=== PATIENT | female | born 1970 | race African-American/Black ===

== ENCOUNTER 2017-06-17 09:28 | Emergency (ER) | payer BC ==
[~2017-06-17] VITALS: Ht 157.5 cm; Wt 104.3 kg
[2017-06-17 09:52] VITALS: BP 132/86
[2017-06-17] MEDS ORDERED: KETOROLAC TROMETH 60MG/2ML VIAL IM ONE (10:15)
== END 2017-06-17 11:06 | disposition home or self-care (01) ==
LOC: ER 09:28
DX: S39.012A Strain of muscle, fascia and tendon of lower back, initial encounter (principal); G89.29 Other chronic pain; I10 Essential (primary) hypertension; X58.XXXA Exposure to other specified factors, initial encounter; Y93.89 Activity, other specified; Y99.8 Other external cause status; Y92.89 Other specified places as the place of occurrence of the external cause
CPT/HCPCS: 72100; 96372; 99284; J1885

== ENCOUNTER 2018-06-18 10:30 | Emergency (ER) | payer BC ==
[~2018-06-18] VITALS: Ht 157.5 cm; Wt 87.5 kg
[2018-06-18 10:38] VITALS: BP 159/94
[2018-06-18] MEDS ORDERED: ALBUTEROL SULF 2.5 MG/0.5ML(0.5%) NEB SOLN NEB ONE (11:45)
[2018-06-18] MEDS ORDERED: IPRATROPIUM BROM 0.5 MG/2.5ML INH SOL NEB ONE (11:45)
[2018-06-18] MEDS ORDERED: methylPREDNISolone SOD SUCC 125 MG/2 ML VL IM ONE (11:45)
== END 2018-06-18 13:00 | disposition home or self-care (01) ==
LOC: ER 10:30
DX: J45.909 Unspecified asthma, uncomplicated (principal); I10 Essential (primary) hypertension
CPT/HCPCS: 71046; 94640; 96372; 99283; J2930; J7611; J7644

== ENCOUNTER 2018-06-21 11:04 | Inpatient (IN) | payer BC ==
[~2018-06-21] VITALS: Ht 157.5 cm; Wt 138.6 kg
[2018-06-21] MEDS ORDERED: ASPirin 81 mg TAB PO ONE (11:30)
[2018-06-21 12:22] LABS: Chloride 106 mmol/L (98-107); Potassium 3.4 mmol/L (3.5-5.1); Sodium 140 mmol/L (136-145)
[2018-06-21 12:24] LABS: Albumin 3.7 g/dL (3.4-5.0); Anion Gap 8 (5-15); Blood Urea Nitrogen 17 mg/dL (7-18); Calcium 9.4 mg/dL (8.5-10.1); Carbon Dioxide 26 mmol/L (21-32); Glucose 92 mg/dL (74-106)
[2018-06-21 12:30] LABS: Alanine Aminotransferase 78 U/L (13-56); Alkaline Phosphatase 138 U/L (45-117); Aspartate Aminotransferase 45 U/L (15-37); BUN/Creatinine Ratio 16.3; Bilirubin, Total 0.3 mg/dL (0.2-1.0); GFR African American 73 mL/min; GFR Non-African American 61 mL/min; Total Protein 8.8 g/dL (6.4-8.2)
[2018-06-21 12:37] LABS: Basophils # (auto) 0.2 uL; Basophils % (auto) 0.8 % (0.0-2.0); Eosinophils # (auto) 0.2 uL; Monocytes # (auto) 1.1 uL; Neutrophils # (auto) 11.8 uL; White Blood Cell 20.7 10^3/uL (4.4-10.8)
[2018-06-21 12:40] LABS: Hematocrit 39.5 % (36.0-46.0); Hemoglobin 11.7 g/dL (12.2-16.2); Lymphocytes # (auto) 7.4 uL; Lymphocytes % (auto) 35.6 % (10.0-50.0); Mean Corpuscular Hemoglobin 17.9 pg (28.0-32.0); Mean Corpuscular Hgb Conc. 29.7 g/dL (32.0-36.0); Mean Corpuscular Volume 60.4 fL (80.0-100.0); Monocytes % (auto) 5.4 % (0.0-12.0); Neutrophils % (auto) 57.2 % (37.0-80.0); Nucleated Red Blood Cells % 0.2 %; Platelet Count (auto) 432 10^3/uL (140-450); Red Blood Cells 6.54 10^6/uL (4.0-5.20)
[2018-06-21] MEDS ORDERED: POTASSIUM CHLORIDE 8 MEQ TAB PO ONE (12:45)
[2018-06-21] MEDS ORDERED: PANTOPRAZOLE 40 MG TAB PO ONE ×2 (12:45→13:00)
[2018-06-21] MEDS ORDERED: NITROGLYCERIN 0.4 MG SL TAB SL PRN (12:45)
[2018-06-21 12:51] LABS: Red Cell Distribution Width 20.6 % (11.8-14.3)
[2018-06-21] MEDS ORDERED: TOPIRAMATE 25 MG TAB PO ONE (13:00)
[2018-06-21] MEDS ORDERED: ASPirin-EC 81 mg tab PO ONE (13:00)
[2018-06-21] MEDS ORDERED: BUDESONIDE (INHALATION) 0.5 MG/2 ML NEB NEB ONE (13:00)
[2018-06-21] MEDS ORDERED: LEVOFLOXACIN 500MG 100 ML IV ONE (13:00)
[2018-06-21 14:13] VITALS: BP 115/73
--- NOTE | 2018-06-21 17:10 | NUR ---
Telemetry admit from ER Patient admitted to Telemetry unit. Patient oriented to primary RN, unit, room, bed, and unit policies regarding patient care and visiting hours. Patient now on continuous telemetry monitoring, tele box # and telemetry reading on arrival to unit is Sinus Tach in the low 100's. Patient weighed by bedscale and encouraged to call if they need something. All questions and concerns addressed, patient verbalized understanding.Bed in lowest, locked position with side rails up x2 and call light within reach. Will continue to monitor patient Q1hr and PRN.
[2018-06-21 17:30] VITALS: BP 114/75
[2018-06-21] MEDS: IPRATROPIUM BROM 0.5 MG/2.5ML INH SOL NEB SCH (18:47)
[2018-06-21] MEDS: ALBUTEROL SULF 2.5 MG/0.5ML(0.5%) NEB SOLN NEB SCH (18:47)
[2018-06-21] MEDS: BUDESONIDE (INHALATION) 0.5 MG/2 ML NEB NEB SCH (18:48)
--- NOTE | 2018-06-21 18:55 | NUR ---
DNR Per patient she has an advanced directive and living will. Will try to have sister bring in tomorrow. Patient also states she wishes DNR status.
--- NOTE | 2018-06-21 19:11 | NUR ---
HOME MEDS Per patient, sister will bring list of medications tomorrow.
--- NOTE | 2018-06-21 19:50 | NUR ---
CLOSING NOTE Endorsed care of patient to NOC Pilar OHARA.
[2018-06-21 21:57] VITALS: BP 103/70
[2018-06-21] MEDS: AMITRIPTYLINE HCL 25 MG TAB PO SCH (22:12)
[2018-06-21] MEDS: ATORVASTATIN 20 MG TAB PO SCH (22:12)
[2018-06-22 05:00] VITALS: BP 105/72
[2018-06-22 06:14] LABS: Potassium 4.2 mmol/L (3.5-5.1)
[2018-06-22 06:25] LABS: Albumin 3.2 g/dL (3.4-5.0); BUN/Creatinine Ratio 21.6; Bilirubin, Total 0.4 mg/dL (0.2-1.0); Calcium 8.5 mg/dL (8.5-10.1); Total Protein 7.4 g/dL (6.4-8.2)
[2018-06-22 07:46] LABS: Basophils # (auto) 0.1 uL; Basophils % (auto) 0.8 % (0.0-2.0); Eosinophils # (auto) 0.4 uL; Eosinophils % (auto) 2.4 % (0.0-7.0); Hematocrit 35.9 % (36.0-46.0); Hemoglobin 10.6 g/dL (12.2-16.2); Lymphocytes # (auto) 5.3 uL; Lymphocytes % (auto) 33.5 % (10.0-50.0); Mean Corpuscular Hemoglobin 17.8 pg (28.0-32.0); Mean Corpuscular Hgb Conc. 29.5 g/dL (32.0-36.0); Mean Corpuscular Volume 60.3 fL (80.0-100.0); Monocytes # (auto) 0.6 uL; Monocytes % (auto) 4.1 % (0.0-12.0); Neutrophils # (auto) 9.3 uL; Neutrophils % (auto) 59.2 % (37.0-80.0); Nucleated Red Blood Cells % 0.1 %; Platelet Count (auto) 359 10^3/uL (140-450); Red Blood Cells 5.96 10^6/uL (4.0-5.20); White Blood Cell 15.7 10^3/uL (4.4-10.8)
[2018-06-22 08:02] LABS: Red Cell Distribution Width 20.3 % (11.8-14.3)
--- NOTE | 2018-06-22 08:15 | NUR ---
Opening Shift Note Assumed care of patient, awake and alert and oriented x4. No S/S of distress/SOB or pain. Instructed on POC and to call for assist PRN, will continue to monitor for changes.
--- NOTE | 2018-06-22 08:22 | NUR ---
Urine collected and sent to lab.
[2018-06-22] MEDS: IPRATROPIUM BROM 0.5 MG/2.5ML INH SOL NEB SCH ×3 (08:30→19:25)
[2018-06-22] MEDS: ALBUTEROL SULF 2.5 MG/0.5ML(0.5%) NEB SOLN NEB SCH ×3 (08:30→19:25)
[2018-06-22 08:47] LABS: Urine Bacteria FEW /hpf (None Seen); Urine Blood Negative /uL (Negative); Urine Specific Gravity 1.021 (1.001-1.035); Urine WBC 2 /hpf (0 - 5)
[2018-06-22] MEDS: PANTOPRAZOLE 40 MG TAB PO SCH (09:23)
[2018-06-22] MEDS: LEVOFLOXACIN 500MG 100 ML IV SCH (09:24)
[2018-06-22] MEDS: TOPIRAMATE 25 MG TAB PO SCH (09:24)
[2018-06-22] MEDS: ASPirin-EC 81 mg tab PO SCH (09:24)
--- NOTE | 2018-06-22 12:06 | NUR ---
Dr Bear at bedside.
[2018-06-22] MEDS: BUDESONIDE (INHALATION) 0.5 MG/2 ML NEB NEB SCH ×2 (12:36→19:25)
[2018-06-22 13:00] VITALS: BP 112/76
--- NOTE | 2018-06-22 13:53 | NUR ---
Dr Bear pagerajiv in order to make aware of S Tach episode, will continue to monitor.
--- NOTE | 2018-06-22 13:58 | NUR ---
Dr Bear at bedside and made aware of STach 150s episode when ambulating to bathroom, per Dr Bear to inform Dr Anderson.
--- NOTE | 2018-06-22 14:18 | NUR ---
Dr Anderson made aware of S Tach episode of 150s when ambulating to bathroom, new order received for V/Q scan will continue to monitor.
[2018-06-22 17:07] VITALS: BP 114/78
--- NOTE | 2018-06-22 17:34 | NUR ---
Patient was c/o 9/10 left lower sided chest pain, sharp. No diaphoresis noted. Patient sitting up in bed eating, no distress noted. Patient refusing Nitro and Morphine and wants Tramadol to be given instead. EKG performed and showing STach will inform MD.
--- NOTE | 2018-06-22 17:50 | NUR ---
Hospitalist Connie at nursing station made aware of CP episode and EKG strip given. Made aware Dr Qureshi was at station and EHG strip shown in meantime that found hospitalist. No new orders, will continue to monitor.
[2018-06-22] MEDS: traMADol HCL 50 MG TAB PO PRN (17:52)
--- NOTE | 2018-06-22 19:01 | NUR ---
Patient care and report handed off to Pilar OHARA.
[2018-06-22] MEDS: AMITRIPTYLINE HCL 25 MG TAB PO SCH (20:42)
[2018-06-22] MEDS: ONDANSETRON HCL 4 MG/2 ML VIAL IV PRN (20:42)
[2018-06-22] MEDS: MORPHINE SULF INJ 2 MG/ML SYRINGE 1ML IV PRN (20:42)
[2018-06-22] MEDS: ATORVASTATIN 20 MG TAB PO SCH (20:42)
[2018-06-22 21:38] VITALS: BP 128/85
[2018-06-23 05:05] VITALS: BP 112/84
[2018-06-23] MEDS: IPRATROPIUM BROM 0.5 MG/2.5ML INH SOL NEB SCH ×3 (05:58→17:50)
[2018-06-23] MEDS: ALBUTEROL SULF 2.5 MG/0.5ML(0.5%) NEB SOLN NEB SCH ×3 (05:58→17:50)
[2018-06-23 06:24] LABS: Hematocrit 33.9 % (36.0-46.0); Hemoglobin 9.9 g/dL (12.2-16.2); Mean Corpuscular Hemoglobin 17.5 pg (28.0-32.0); Mean Corpuscular Hgb Conc. 29.2 g/dL (32.0-36.0); Mean Corpuscular Volume 59.9 fL (80.0-100.0); Platelet Count (auto) 331 10^3/uL (140-450); Red Blood Cells 5.65 10^6/uL (4.0-5.20); White Blood Cell 15.2 10^3/uL (4.4-10.8)
[2018-06-23 06:25] LABS: Red Cell Distribution Width 20.2 % (11.8-14.3)
[2018-06-23 06:26] LABS: Basophils % (manual) 0 (0.0-2.0); Blast Cells 0; Metamyelocytes % 0; Myelocytes % 0; Promyelocytes % 0; Reactive Lymphocytes 0
[2018-06-23 08:00] VITALS: BP 105/77
[2018-06-23] MEDS: traMADol HCL 50 MG TAB PO PRN ×2 (08:02→18:15)
[2018-06-23 08:08] LABS: Band Neutrophils % (manual) 3; Eosinophils % (manual) 1 (0-7); Lymphocytes % (manual) 31 (10.0-50.0); Monocytes % (manual) 8 (0-12)
--- NOTE | 2018-06-23 08:12 | NUR ---
OPENING NOTE Received report on patient. Patient is awake in bed, eating breakfast. A/O x4. No signs/symptoms of pain or distress at this time. Discussed POC with patient. Patient verbalizes understanding. Call light within reach.
[2018-06-23 08:49] VITALS: BP 105/77
[2018-06-23] MEDS: LEVOFLOXACIN 500MG 100 ML IV SCH (10:15)
[2018-06-23] MEDS: ASPirin-EC 81 mg tab PO SCH (10:15)
[2018-06-23] MEDS: PANTOPRAZOLE 40 MG TAB PO SCH (10:17)
[2018-06-23] MEDS: TOPIRAMATE 25 MG TAB PO SCH (10:18)
[2018-06-23] MEDS: ONDANSETRON HCL 4 MG/2 ML VIAL IV PRN (10:35)
[2018-06-23] MEDS: MORPHINE SULF INJ 2 MG/ML SYRINGE 1ML IV PRN (10:35)
--- NOTE | 2018-06-23 10:35 | NUR ---
Dr Bear made aware patient c/o CP 9/10 to left side. Patient laying in bed with no distress or diaphoresis noted. EKG done and read by Dr Bear. No new orders received, will continue to monitor.
--- NOTE | 2018-06-23 11:20 | NUR ---
Dr Anderson at nursing station and made aware that pt continued to c/o CP yesterday evening 06/22/18 and this morning 06/24/18. New order received for LHC by Dr Anderson, will continue to monitor.
[2018-06-23] MEDS: BUDESONIDE (INHALATION) 0.5 MG/2 ML NEB NEB SCH ×2 (11:34→17:50)
[2018-06-23 12:29] LABS: INR 0.94 (0.9-1.15); Partial Thromboplastin Time 24.3 sec (23.78-33.04); Prothrombin Time 10.1 sec (9.27-12.13)
[2018-06-23 13:00] VITALS: BP 110/81
--- NOTE | 2018-06-23 13:08 | NUR ---
IV INSERTION 20 gauge IV inserted into patients left hand. Secured and patent. Pt tolerated well.
--- NOTE | 2018-06-23 15:18 | NUR ---
Received call from Josie from laboratory veterinarian to inform RN that pt will be rescheduled for procedure tomorrow 06/24/18 at 0700, will continue to monitor.
[2018-06-23 16:35] VITALS: BP 128/78
--- NOTE | 2018-06-23 16:50 | NUR ---
Received call from Josie from yard labor supervisor to inform RN that pt will be rescheduled once again for procedure Thursday06/25/18 in the morning.
--- NOTE | 2018-06-23 19:09 | NUR ---
Patient care and report handed off to Pilar OHARA made aware pt to have procedure on Thursday06/25/18 AM.
[2018-06-23] MEDS: AMITRIPTYLINE HCL 25 MG TAB PO SCH (21:17)
[2018-06-23] MEDS: ATORVASTATIN 20 MG TAB PO SCH (21:17)
[2018-06-23 21:49] VITALS: BP 123/63
[2018-06-24] MEDS: traMADol HCL 50 MG TAB PO PRN ×3 (01:48→18:54)
[2018-06-24 05:12] VITALS: BP 106/69
[2018-06-24] MEDS: IPRATROPIUM BROM 0.5 MG/2.5ML INH SOL NEB SCH ×3 (06:33→18:28)
[2018-06-24] MEDS: ALBUTEROL SULF 2.5 MG/0.5ML(0.5%) NEB SOLN NEB SCH ×3 (06:33→18:27)
[2018-06-24] MEDS: BUDESONIDE (INHALATION) 0.5 MG/2 ML NEB NEB SCH ×2 (06:33→18:28)
[2018-06-24 06:43] LABS: Basophils # (auto) 0.1 uL; Hemoglobin 9.7 g/dL (12.2-16.2); White Blood Cell 15.3 10^3/uL (4.4-10.8)
[2018-06-24 06:50] LABS: Basophils % (auto) 0.8 % (0.0-2.0); Eosinophils # (auto) 0.3 uL; Hematocrit 32.5 % (36.0-46.0); Lymphocytes # (auto) 4.9 uL; Lymphocytes % (auto) 31.7 % (10.0-50.0); Mean Corpuscular Hgb Conc. 29.8 g/dL (32.0-36.0); Mean Corpuscular Volume 60.5 fL (80.0-100.0); Monocytes # (auto) 0.7 uL; Monocytes % (auto) 4.4 % (0.0-12.0); Neutrophils # (auto) 9.4 uL; Neutrophils % (auto) 61.1 % (37.0-80.0); Platelet Count (auto) 325 10^3/uL (140-450); Red Blood Cells 5.38 10^6/uL (4.0-5.20)
[2018-06-24 07:02] LABS: Red Cell Distribution Width 20.2 % (11.8-14.3)
--- NOTE | 2018-06-24 08:00 | NUR ---
Opening Shift Note Assumed care of patient, awake and alert. No S/S of distress/SOB or pain. Instructed on POC and to call for assist PRN, will continue to monitor for changes Q1hr and PRN.
[2018-06-24] MEDS: TOPIRAMATE 25 MG TAB PO SCH (08:48)
[2018-06-24] MEDS: PANTOPRAZOLE 40 MG TAB PO SCH (08:48)
[2018-06-24] MEDS: ASPirin-EC 81 mg tab PO SCH (08:49)
[2018-06-24 09:00] VITALS: BP 104/79
[2018-06-24] MEDS: LEVOFLOXACIN 500MG 100 ML IV SCH (09:00)
--- NOTE | 2018-06-24 11:30 | NUR ---
Patient ambulating to bathroom.
[2018-06-24 13:00] VITALS: BP 112/70
[2018-06-24] MEDS ORDERED: methylPREDNISolone SOD SUCC 40 MG/ML VL IV ONE (14:00)
[2018-06-24 16:23] VITALS: BP 114/74
[2018-06-24 18:28] VITALS: BP 114/74
[2018-06-24] MEDS: methylPREDNISolone SOD SUCC 40 MG/ML VL IV SCH (21:52)
[2018-06-24] MEDS: ATORVASTATIN 20 MG TAB PO SCH (21:52)
[2018-06-24] MEDS: AMITRIPTYLINE HCL 25 MG TAB PO SCH (21:52)
[2018-06-24] MEDS: ONDANSETRON HCL 4 MG/2 ML VIAL IV PRN (22:03)
[2018-06-24] MEDS: MORPHINE SULF INJ 2 MG/ML SYRINGE 1ML IV PRN (22:04)
[2018-06-24 22:08] VITALS: BP 119/61
[2018-06-25 05:06] VITALS: BP 126/93
[2018-06-25] MEDS: ALBUTEROL SULF 2.5 MG/0.5ML(0.5%) NEB SOLN NEB SCH ×3 (05:57→19:15)
[2018-06-25] MEDS: BUDESONIDE (INHALATION) 0.5 MG/2 ML NEB NEB SCH ×2 (05:57→19:15)
[2018-06-25] MEDS: IPRATROPIUM BROM 0.5 MG/2.5ML INH SOL NEB SCH ×3 (05:57→19:15)
--- NOTE | 2018-06-25 07:50 | NUR ---
Opening Shift Note Assumed care of patient, awake and alert. NPO prior left heart cath. No S/S of distress/SOB or pain. Instructed on POC and to call for assist PRN, bed locked in the lowest position , call light within east reach, will continue to monitor for changes Q1hr and PRN.
[2018-06-25 08:13] VITALS: BP 136/98
--- NOTE | 2018-06-25 08:30 | NUR ---
PT OFF UNIT TO DELI CLERK VIA BED, NO ACUTE DISTRESS NOTED AT DEPARTURE. VS:97.8, 116, 19, 136/98, 95% ON RA, 0/10.
[2018-06-25] MEDS ORDERED: IOHEXOL 300 MG/ML 75ml BOTTLE ONE ×2 (08:45→09:54)
[2018-06-25] MEDS ORDERED: LIDOCAINE 2%HCL (LOCAL ANESTH.) INJ 20ML MDV ONE (08:45)
[2018-06-25 09:00] VITALS: BP 136/98
[2018-06-25] MEDS ORDERED: fentaNYL CITRATE 100 MCG/2 ML VL ONE ×2 (09:00→10:08)
[2018-06-25] MEDS ORDERED: ANGIOMAX 250 MG VIAL IV ONE (09:00)
[2018-06-25] MEDS ORDERED: SODIUM CHL 0.9% 0 ML ONE (09:01)
[2018-06-25] MEDS ORDERED: MIDAZOLAM HCL 1MG/1ML-2 ML VIAL ONE ×2 (09:01→10:06)
--- NOTE | 2018-06-25 11:32 | NUR ---
Respiratory note: SCHEDULED MED NEB TX NOT GIVEN. PT AT A PROCEDURE.
[2018-06-25] MEDS: methylPREDNISolone SOD SUCC 40 MG/ML VL IV SCH ×2 (12:30→21:07)
[2018-06-25] MEDS: LEVOFLOXACIN 500MG 100 ML IV SCH (12:30)
--- NOTE | 2018-06-25 12:30 | NUR ---
Pt back to room via bed. S/P left heart cath, dressing to right groin clean/dry/intact. Pedal pulses on affected leg assessed for positive tissue perfusion. Patient instructed on need to notify staff immediately if any pain, burning or wetness to site, and any lower back pain. All questions and concerns addressed, patient verbalized understanding of all education and instruction. Bed locked in the lowest position, call light within easy reach, will continue care. vs: 98.2, 101, 18, 141/102, 92% on ra, 0/10.
[2018-06-25] MEDS: ASPirin-EC 81 mg tab PO SCH (12:31)
[2018-06-25] MEDS: PANTOPRAZOLE 40 MG TAB PO SCH (12:31)
[2018-06-25] MEDS: TOPIRAMATE 25 MG TAB PO SCH (12:31)
[2018-06-25] MEDS: traMADol HCL 50 MG TAB PO PRN ×2 (12:57→21:08)
--- NOTE | 2018-06-25 14:10 | NUR ---
PT RESTING IN BED, SISTER AT BEDSIDE. DRESSING TO RIGHT GROIN CLEAN/DRY/INTACT NO BLEEDING NO BRUISING NOTED. DENIED OF PAIN NOR ANY DISCOMFORT AT THIS TIME. PEDAL PULSES (+) TO CAROLYN LOWER EXTREMITIES. VS: 98.3, 118, 16, 129/79, 95% ON RA, 0/10. WILL CONTINUE TO MONITOR.
--- NOTE | 2018-06-25 14:26 | NUR ---
NUTRITION ASSESSMENT NOTES Please refer to link notes of nutrition screen form filed under the intervention section of the plan of care for further details. Est. Needs based on AdBW (72 kg): 1450 kcal to 1850 kcal (20-25 kcal/kgAdBW), 72 gms to 86 gms pro (1.0-1.2 gms/kgAdBW). Will continue to monitor pertinent labs and reassess nutrient need prn Thank you. Addendum: 06/25/18 at [address] Amended: Links added.
[2018-06-25 16:36] VITALS: BP 129/79
--- NOTE | 2018-06-25 19:04 | NUR ---
CARE ENDORSED TO BELKIS OHARA.
[2018-06-25] MEDS: AMITRIPTYLINE HCL 25 MG TAB PO SCH (21:07)
[2018-06-25] MEDS: ATORVASTATIN 20 MG TAB PO SCH (21:07)
[2018-06-25] MEDS: MORPHINE SULF INJ 2 MG/ML SYRINGE 1ML IV PRN (21:15)
[2018-06-25] MEDS: ONDANSETRON HCL 4 MG/2 ML VIAL IV PRN (21:15)
[2018-06-25 22:00] VITALS: BP 114/72
--- NOTE | 2018-06-26 00:14 | NUR ---
PT CHECKED, SLEEPING AT THIS TIME. NO SOB NOTED. [place] TX NOT INDICATED
[2018-06-26 05:00] VITALS: BP 111/69
[2018-06-26] MEDS: IPRATROPIUM BROM 0.5 MG/2.5ML INH SOL NEB SCH ×2 (06:02→11:10)
[2018-06-26] MEDS: ALBUTEROL SULF 2.5 MG/0.5ML(0.5%) NEB SOLN NEB SCH ×2 (06:02→11:10)
--- NOTE | 2018-06-26 07:50 | NUR ---
Opening Shift Note Assumed care of patient, AAOX4, breathing even nonlabored, S1,S2, abd soft nontender, dressing to right groin clean/dry/intact. No S/S of distress/SOB or pain. Instructed on POC and to call for assist PRN, bed locked in the lowest position, call light within easy reach, will continue to monitor for changes Q1hr and PRN.
[2018-06-26 08:00] VITALS: BP 134/81
[2018-06-26] MEDS: methylPREDNISolone SOD SUCC 40 MG/ML VL IV SCH (09:49)
[2018-06-26] MEDS: PANTOPRAZOLE 40 MG TAB PO SCH (09:49)
[2018-06-26] MEDS: ASPirin-EC 81 mg tab PO SCH (09:50)
[2018-06-26] MEDS: TOPIRAMATE 25 MG TAB PO SCH (09:50)
[2018-06-26] MEDS: traMADol HCL 50 MG TAB PO PRN (09:51)
[2018-06-26] MEDS: LEVOFLOXACIN 500MG 100 ML IV SCH (09:51)
[2018-06-26] MEDS: BUDESONIDE (INHALATION) 0.5 MG/2 ML NEB NEB SCH (11:10)
[2018-06-26 11:50] VITALS: BP 131/85
--- NOTE | 2018-06-26 13:04 | NUR ---
DR. HOWELL AT BEDSIDE. POC DISCUSSED WITH PT.
[2018-06-26 13:41] VITALS: BP 134/81
--- NOTE | 2018-06-26 15:44 | NUR ---
Discharge instructions given as ordered. Encourage to follow up with Dr. Michelle Valente as instructed. All questions and concerns addressed. Patient verbalized understanding. Medication reconciliation form completed and copy given to patient. IV removed with catheter intact, pressure dressing applied. Telemetry unit returned to [facility]. Patient taken to vehicle via wheelchair with all personal belongings, accompanied by staff and family member. No distress noted at time of departure.
== END 2018-06-26 15:30 | disposition home or self-care (01) | DRG 871 ==
LOC: ER 11:16 → TELE 12:52 → TELE-WESTW 16:57
PROVIDERS: ADMIT Internal Medicine; ATTEND Internal Medicine
PROC: 4A023N8 Measurement of Cardiac Sampling and Pressure, Bilateral, Percutaneous Approach (ICD-10-PCS; principal; 2018-06-25)
PROC: B2111ZZ Fluoroscopy of Multiple Coronary Arteries using Low Osmolar Contrast (ICD-10-PCS; 2018-06-25)
PROC: B2151ZZ Fluoroscopy of Left Heart using Low Osmolar Contrast (ICD-10-PCS; 2018-06-25)
DX: A41.9 Sepsis, unspecified organism (principal); J18.9 Pneumonia, unspecified organism; I24.9 Acute ischemic heart disease, unspecified; J45.901 Unspecified asthma with (acute) exacerbation; Z68.43 Body mass index [BMI] 50.0-59.9, adult; E66.01 Morbid (severe) obesity due to excess calories; G43.909 Migraine, unspecified, not intractable, without status migrainosus; R79.1 Abnormal coagulation profile; G47.33 Obstructive sleep apnea (adult) (pediatric); I10 Essential (primary) hypertension; K21.9 Gastro-esophageal reflux disease without esophagitis; Z82.49 Family history of ischemic heart disease and other diseases of the circulatory system; K76.0 Fatty (change of) liver, not elsewhere classified
CPT/HCPCS: 36415; 71045; 76705; 78582; 80053; 81001; 82962; 83735; 83880; 84443; 84484; 85007; 85025; 85027; 85379; 85610; 85730; 86850; 86900; 86901; 93005; 93306; 94640; 94761; 96374; A6257; C1751; G0378; J1956; J2250; J2405

== ENCOUNTER 2018-12-15 09:15 | Emergency (ER) | payer BC ==
[~2018-12-15] VITALS: Ht 157.5 cm; Wt 131.5 kg
[2018-12-15 09:54] LABS: Hemoglobin 9.4 g/dL (12.2-16.2)
[2018-12-15 09:56] LABS: Hematocrit 31.8 % (36.0-46.0); Mean Corpuscular Hemoglobin 16.7 pg (28.0-32.0); Mean Corpuscular Hgb Conc. 29.7 g/dL (32.0-36.0); Mean Corpuscular Volume 56.2 fL (80.0-100.0); Platelet Count (auto) 361 10^3/uL (140-450); Red Blood Cells 5.65 10^6/uL (4.0-5.20); White Blood Cell 11.9 10^3/uL (4.4-10.8)
[2018-12-15 10:08] LABS: Red Cell Distribution Width 22.5 % (11.8-14.3)
[2018-12-15 10:10] LABS: Basophils % (manual) 0 (0.0-2.0); Blast Cells 0; Metamyelocytes % 0; Myelocytes % 0; Promyelocytes % 0; Reactive Lymphocytes 0
[2018-12-15 10:12] LABS: Alanine Aminotransferase 21 U/L (13-56); Albumin 3.3 g/dL (3.4-5.0); Anion Gap 9 (5-15); Aspartate Aminotransferase 15 U/L (15-37); Blood Urea Nitrogen 10 mg/dL (7-18); Calcium 8.7 mg/dL (8.5-10.1); Carbon Dioxide 19 mmol/L (21-32); Chloride 114 mmol/L (98-107); Glucose 127 mg/dL (74-106); Potassium 3.8 mmol/L (3.5-5.1); Sodium 142 mmol/L (136-145)
[2018-12-15 10:14] LABS: Urine Bacteria MANY /hpf (None Seen); Urine Blood Negative /uL (Negative); Urine Hyaline Cast FEW /lpf (0 - 2); Urine Mucus FEW (None Seen); Urine Specific Gravity 1.023 (1.001-1.035); Urine WBC 6 /hpf (0 - 5)
[2018-12-15 10:16] LABS: Alkaline Phosphatase 132 U/L (45-117); BUN/Creatinine Ratio 11.8; Bilirubin, Total 0.2 mg/dL (0.2-1.0); GFR African American 92 mL/min; GFR Non-African American 76 mL/min; Total Protein 8.2 g/dL (6.4-8.2)
[2018-12-15 10:48] LABS: Band Neutrophils % (manual) 1; Eosinophils % (manual) 3 (0-7); Lymphocytes % (manual) 8 (10.0-50.0); Monocytes % (manual) 7 (0-12)
[2018-12-15 14:13] VITALS: BP 145/95
== END 2018-12-15 14:20 | disposition home or self-care (01) ==
LOC: ER 09:15
DX: J40 Bronchitis, not specified as acute or chronic (principal); D64.9 Anemia, unspecified; R07.89 Other chest pain; E11.9 Type 2 diabetes mellitus without complications; I10 Essential (primary) hypertension; J45.909 Unspecified asthma, uncomplicated; Z90.89 Acquired absence of other organs
CPT/HCPCS: 36415; 80053; 81001; 84484; 85007; 85027; 93005